=== PATIENT | female | born 1995 | race American Indian/Alaskan Native ===

== ENCOUNTER 2020-07-25 20:19 | Emergency (ER) | payer OTHER ==
[2020-07-25 20:29] VITALS: BP 102/64
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
== END 2020-07-25 20:56 | disposition home or self-care (01) ==
LOC: ED 20:19
DX: S16.1XXA Strain of muscle, fascia and tendon at neck level, initial encounter (principal); Z79.899 Other long term (current) drug therapy; V49.29XA Unspecified car occupant injured in collision with other motor vehicles in nontraffic accident, initial encounter; Y92.410 Unspecified street and highway as the place of occurrence of the external cause; Y93.89 Activity, other specified; Y99.8 Other external cause status
CPT/HCPCS: 99282

== ENCOUNTER 2021-09-01 13:24 | Emergency (ER) | payer OTHER ==
[2021-09-01 14:27] VITALS: BP 118/73
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
== END 2021-09-02 14:40 | disposition home or self-care (01) ==
LOC: ED 13:24
DX: S00.93XA Contusion of unspecified part of head, initial encounter (principal); V89.2XXA Person injured in unspecified motor-vehicle accident, traffic, initial encounter; Y93.89 Activity, other specified; Y92.89 Other specified places as the place of occurrence of the external cause; Y99.8 Other external cause status
CPT/HCPCS: 70450; 72125; 99283